=== PATIENT | male | born 1930 | race Caucasian/White ===

== ENCOUNTER 2017-06-18 03:03 | Emergency (ER) | payer MEDICARE, OTHER ==
[2017-06-18] MEDS ORDERED: Ketorolac 30 MG/ML SDV IM ONE (03:39)
--- NOTE | 2017-06-18 03:42 | EDM.PDOC ---
ED HPI GENERAL MEDICAL PROBLEM - General Chief Complaint: Upper Extremity Injury/Pain Stated Complaint: L SHOULDER PAIN VIA NORTH Time Seen by Provider: 06/18/17 03:34 Source of Information: Reports: Patient, RN Notes Reviewed History Limitations: Reports: No Limitations - History of Present Illness INITIAL COMMENTS - FREE TEXT/NARRATIVE: 86-year-old gentleman presents emergency department today complaint of left shoulder pain, he states he may have injured himself yesterday after shoveling some snow now he is having increased pain in that shoulder and difficulty moving the shoulder, Denies any nausea, vomiting, fevers, shortness of breath , chest pain, or GI symptomatology. Left Shoulder Pain Score (Numeric/FACES): 8 - Related Data Allergies Allergy/AdvReac Type Severity Reaction Status Date / Time No Known Allergies Allergy Verified 06/18/17 03:15 Home Meds: Home Meds Fish Oil/[place]-3 Fatty Acids [Fish Oil 1,000 MG] 1 gm PO DAILY 08/17/14 [History ] Glucosamine [Glucosamine Sulfate] 500 mg PO DAILY 08/17/14 [History] Ibuprofen [Advil] 400 mg PO ASDIRECTED 08/17/14 [History] Metoprolol Tartrate [Lopressor] 25 mg PO BID 08/17/14 [History] Multivitamin [Multi-Vitamin Daily] 1 tab PO DAILY 08/17/14 [History] Past Medical History HEENT History: Reports: Impaired Vision Cardiovascular History: Reports: Arrhythmia Genitourinary History: Reports: Prostate Disorder Musculoskeletal History: Reports: Fracture, Other (See Below) Other Musculoskeletal History: L ashoulder injury Fx nose Neurological History: Reports: Concussion Oncologic (Cancer) History: Reports: Prostate - Infectious Disease History Infectious Disease History: Reports: Chicken Pox, Measles, Mumps, Shingles - Past Surgical History GI Surgical History: Reports: Colonoscopy Male Surgical History: Reports: Prostatectomy Social & Family History - Tobacco Use Smoking Status *Q: Never Smoker Second Hand Smoke Exposure: No - Caffeine Use Caffeine Use: Reports: Coffee - Alcohol Use Days Per Week of Alcohol Use: 7 Number of Drinks Per Day: 1 Total Drinks Per Week: 7 - Recreational Drug Use Recreational Drug Use: No Review of Systems - Review of Systems Review Of Systems: See Below Respiratory: Reports: No Symptoms Cardiovascular: Reports: No Symptoms GI/Abdominal: Reports: No Symptoms Musculoskeletal: Reports: Shoulder Pain Neurological: Reports: No Symptoms ED EXAM, GENERAL - Physical Exam Exam: See Below Free Text/Narrative:: Examination of the shoulder left side I don't appreciate any erythema there is no edema he has pain with movement any amount of the shoulder any degree of abduction or internal or external rotation, no pain with movement of the elbow radial pulses +2 Exam Limited By: No Limitations General Appearance: Alert, WD/WN, No Apparent Distress Respiratory/Chest: No Respiratory Distress Course - Vital Signs Last Recorded V/S: Last Vital Signs Temp 96.2 F 06/18/17 03:12 Pulse 70 06/18/17 03:12 Resp 16 06/18/17 03:12 BP 140/66 06/18/17 03:12 Pulse Ox 92 L 06/18/17 03:12 - Orders/Labs/Meds Meds: Medications Discontinued Medications Generic Name Dose Route Start Last Admin Trade Name Luna PRN Reason Stop Dose Admin Ketorolac Tromethamine 30 mg 06/18/17 03:39 06/18/17 03:47 Toradol IM 06/18/17 03:40 30 mg ONETIME ONE Administration Departure - Departure Time of Disposition: 05:06 Disposition: Home, Self-Care 01 Condition: Good Clinical Impression: Adhesive capsulitis of left shoulder - Discharge Information Referrals: PCP,None [Primary Care Provider] - Forms: ED Department Discharge Additional Instructions: Use ibuprofen as needed for baseline pain control, use hydrocodone for breakthrough pain, Please followup with your primary care provider in 3-5 days if not better, please call return to the emergency department with worsening of symptoms. - Assessment/Plan Plan: Assessment Acuity = acute Site and laterality = adhesive capsulitis left Etiology = unclear etiology Manifestations = pain Location of injury = Home Lab values = none Plan He had some improvement with Toradol, prescription written for hydrocodone 5/ 325 one tab by mouth 3 times a day when necessary total #10 he is to follow-up with his primary care in the next 3-5 days for reevaluation This note was dictated using [facility] voice recognition software please call with any questions on syntax or betty.
[2017-06-18 03:47] VITALS: BP 140/66
== END 2017-06-18 06:12 | disposition home or self-care (01) ==
LOC: JP.ED 03:03
DX: M75.02 Adhesive capsulitis of left shoulder (principal); Z79.899 Other long term (current) drug therapy
CPT/HCPCS: 96372; 99284; J1885; 99283

== ENCOUNTER 2017-11-19 22:58 | Emergency (ER) | payer MEDICARE, OTHER ==
[2017-11-19 23:34] VITALS: BP 132/59
--- NOTE | 2017-11-20 00:14 | EDM.PDOC ---
ED HPI GENERAL MEDICAL PROBLEM - General Chief Complaint: Laceration Stated Complaint: FALL - LEFT ARM Time Seen by Provider: 11/19/17 23:30 Source of Information: Reports: Patient History Limitations: Reports: No Limitations - History of Present Illness INITIAL COMMENTS - FREE TEXT/NARRATIVE: pt fell off of the dock and he ended up with a skin tear on his left elebow. He has good motion of the elebow but he is bleeding from the skin tear. Onset: Today, Other (pt fell on the dock getting out of the boat tonight. he had multiple skin tears on the left armh) Duration: Hour(s): Location: Reports: Upper Extremity, Left Associated Symptoms: Reports: No Other Symptoms Left Arm Pain Score (Numeric/FACES): 2 - Related Data Allergies Allergy/AdvReac Type Severity Reaction Status Date / Time No Known Allergies Allergy Verified 11/19/17 23:31 Home Meds: Home Meds Fish Oil/[place]-3 Fatty Acids [Fish Oil 1,000 MG] 1 gm PO DAILY 08/17/14 [History ] Ibuprofen [Advil] 400 mg PO ASDIRECTED 08/17/14 [History] Metoprolol Tartrate [Lopressor] 25 mg PO BID 08/17/14 [History] Multivitamin [Multi-Vitamin Daily] 1 tab PO DAILY 08/17/14 [History] Past Medical History HEENT History: Reports: Hard of Hearing, Impaired Vision Cardiovascular History: Reports: Arrhythmia Genitourinary History: Reports: Prostate Disorder Musculoskeletal History: Reports: Fracture, Other (See Below) Other Musculoskeletal History: L ashoulder injury Fx nose Neurological History: Reports: Concussion Oncologic (Cancer) History: Reports: Prostate - Infectious Disease History Infectious Disease History: Reports: Chicken Pox, Measles, Mumps, Shingles - Past Surgical History GI Surgical History: Reports: Colonoscopy Male Surgical History: Reports: Prostatectomy Neurological Surgical History: Reports: Other (See Below) Other Neurological Surgeries/Procedures: plates in back of neck for injury sp fall Social & Family History - Family History Family Medical History: Noncontributory - Tobacco Use Smoking Status *Q: Never Smoker Second Hand Smoke Exposure: No - Caffeine Use Caffeine Use: Reports: Coffee - Recreational Drug Use Recreational Drug Use: No ED ROS GENERAL - Review of Systems Review Of Systems: See Below Constitutional: Reports: No Symptoms HEENT: Reports: No Symptoms Respiratory: Reports: No Symptoms Endocrine: Reports: No Symptoms GI/Abdominal: Reports: No Symptoms : Reports: No Symptoms Skin: Reports: Other (pt fell on the dock and has multiple skin tears on the left arm. ) Neurological: Reports: No Symptoms ED EXAM, SKIN/RASH Exam: See Below Text/Narrative:: pt has skin tears on the left arm after falling on the dock. pt has multiple skin tears after falling on the dock Exam Limited By: No Limitations General Appearance: Alert Extremities: Other (on the left arm he has 3 _3 inch skin tears on the left forearm. These were glued down and covered. He is advised to keep them covered. He is also advised that some of the skin will peel off but it will heal underneath. He need a tetanus booster. ) Course - Vital Signs Last Recorded V/S: Last Vital Signs Temp 36.7 C 11/19/17 23:33 Pulse 79 11/19/17 23:33 Resp 18 11/19/17 23:33 BP 132/59 L 11/19/17 23:33 Pulse Ox 93 L 11/19/17 23:33 - Orders/Labs/Meds Orders: Active Orders 24 hr Category Date Time Status Vaccines to be Administered [RC] PER UNIT ROUTINE Care 11/20/17 00:50 Active Meds: Medications Discontinued Medications Generic Name Dose Route Start Last Admin Trade Name Luna PRN Reason Stop Dose Admin Diphtheria/Tetanus/Acell Pertussis 0.5 ml 11/20/17 00:49 Adacel IM 11/20/17 00:50 .ONCE ONE Departure - Departure Time of Disposition: 00:50 Disposition: Home, Self-Care 01 Condition: Fair Clinical Impression: Skin tear of left upper arm without complication - Discharge Information Referrals: Jr Aguilar MD [Primary Care Provider] - Forms: ED Department Discharge Care Plan Goals: keep covered and do not soak. - My Orders Last 24 Hours: My Active Orders 11/20/17 00:50 Vaccines to be Administered [RC] PER UNIT ROUTINE - Assessment/Plan Last 24 Hours: My Active Orders 11/20/17 00:50 Vaccines to be Administered [RC] PER UNIT ROUTINE
[2017-11-20] MEDS ORDERED: Diphtheria,Pertussis(Acell),Tetanus Vaccine 0.5 ML SDV IM ONE (00:49)
== END 2017-11-20 01:20 | disposition home or self-care (01) ==
LOC: JP.ED 22:58
DX: S51.812A Laceration without foreign body of left forearm, initial encounter (principal); Z23 Encounter for immunization; W01.198A Fall on same level from slipping, tripping and stumbling with subsequent striking against other object, initial encounter
CPT/HCPCS: 12004; 12006; 90471; 90715; 99284-25